=== PATIENT | male | born 1975 | race Caucasian/White ===

== ENCOUNTER 2019-05-06 14:32 | Emergency (ER) | payer BC ==
--- NOTE | 2019-05-06 15:52 | ED Physician Chart ---
ED Chief Complaint/HPI - Patient Information Date Seen:: 05/06/19 Time Seen:: 15:00 Chief Complaint:: Left foot pain for about 6 days. History of Present Illness:: Pt came in by private auto because of left foot pain for about 6 days after he accidentally twisted it when he slipped on wet floor. No other bodily injury or pain. No LOC. Last analgesic use with ibuprofen at about 1230 today. Allergies:: Allergies Allergy/AdvReac Type Severity Reaction Status Date / Time No Known Allergies Allergy Verified 05/06/19 14:54 Vitals:: Vital Signs - 8 hr 05/06/19 14:54 Temp 97.4 F HR 86 RR 17 BP 122/72 O2 Sat % 95 Historian:: Patient Family MD/PCP:: unknown LMP:: N/A Review:: Nurse's Note Reviewed ED Review of Systems - Review of Systems General/Constitutional: No fever, No weakness, No loss of appetite Skin: No skin lesions, No rash, No bruising Head: No headache, No light-headedness Eyes: No loss of vision, No pain, No diplopia ENT: No earache, No nasal drainage, No sore throat Neck: No stiffness, No mass noted Cardio Vascular: No chest pain Pulmonary: No SOB, No cough, No wheezing GI: No nausea, No vomiting, No pain G/U: No dysuria, No frequency, No hematuria Musculoskeletal: Bone or joint pain (L foot pain.) Psychiatric: No prior psych history Hematopoietic: No bruising, No lymphadenopathy Allergic/Immuno: No urticaria, No angioedema Neurological: No syncope, No focal symptoms, No weakness, No paresthesia, No headache, No dizziness, No confusion ED Past Medical History - Past Medical History Past Medical History: No significant medical hx Family History: HTN (in both parents.) Social History: Smoker, Alcohol, Illicit Drug Use (with marijuana.), Single, Other (Pt has been informed about health risks associated with tobacco, ethanol , and illicit drug use and has been advised to stop. Pt has been encouraged to enroll in a smoking cessation program and rehab. program. Pt acknowledges understanding.) Employment:: unemployed. Surgical History: other (Abdominal surgery related renal condition at age 14.) Psychiatricy History: None Medication: Reviewed Family Medical History - Family Member Mother History Unknown: Yes ED Physical Exam - Physical Examination General/Constitutional: Awake, Well-developed, well-nourished (male), Alert, No distress Other Gen/Cons comments:: Breathes comfortably, speaks clearly, and interacts appropriately. Eyes: Lids, conjuctiva normal, PERRL, EOMI Skin: Well hydrated, No lymphadenopathy ENMT: External ears, nose nl, Nasal exam nl, Oropharynx nl Neck: Nontender, Full ROM w/o pain, No nuchal rigidity, No mass Respiratory: Nl effort/Exclusion, Clear to Auscultation, No Wheeze/Rhonchi/Rales Cardio Vascular: RRR, No murmur, gallop, rubs GI: No tenderness/rebounding/guarding, No organomegaly, Normal BS's, Nondistended, No mass/bruits Other GI comments:: Abdomen is obese but soft. Other Extremities comments:: LLE: remarkable for tenderness at lateral left ankle and distal dorsum of left foot. There is mild swelling. No erythema, gross deformity, ecchymosis or open wound. ROM is not well assessed due to pain. No detectable motor/sensory/ vascular deficit. Good distal pulse and capillary refill. Neuro/Psych: Alert/oriented (oriented x 3. ), No focal deficits Misc: Normal back, No paraspinal tenderness ED Labs/Radiology/EKG Results - Radiology Results Results: L foot X-ray: Based on my interpretation, distal left fibular fracture noticed. Otherwise, unremarkable. Official report is pending. L ankle X-ray: Based on my interpretation, distal spiral comminuted fracture noticed in distal left fibula. Offical report is pending. ED Septic Shock - . Is Septic Shock (SBP<90, OR Lactate>4 mmol\L) present?: No - <6hrs of presentation: Vital Signs: Vital Signs - 8 hr 05/06/19 14:54 Temp 97.4 F HR 86 RR 17 BP 122/72 O2 Sat % 95 ED Reassessment (Disposition) - Reassessment Reassessment:: 1805 Pt remains comfortable. Radiological findings have been reviewed with pt. Pt requests to go home now. Aftercare instructions have been given. Reassessment Condition:: Improved - Diagnosis Diagnosis:: S/P mechanical fall with left distal fibular fracture and left foot contusion. Stable. - Aftercare/Follow up Instructions Aftercare/Follow-Up Instructions:: Refer to Discharge Instructions Notes:: Wear left leg splint to ankle and foot as directed. Avoid weight bearing on left leg. Use crutches. May take Motrin 200 mg tab 4 tabs po q8h prn pain. Fracture and bruise care instructions given. F/U with Dr. [facility] ([facility]) or orthopedic surgeon of pt's choice in one day for recheck. Return to ER immediately if condition worsens or if any further questions/problems. Medication Prescribed:: None - Patient Disposition Discharge/Transfer:: Home Time:: 18:10 Condition at Disposition:: Stable, Improved
--- NOTE | 2019-05-07 09:59 | Diagnostic Imaging Report ---
Left ankle 3 views Indication: Trauma Comparison: Left foot x-rays the same day Findings: There is a mildly displaced oblique fracture of the distal fibular shaft extending to the metaphyseal region. Generalized subcutaneous edema is noted. Mild degenerative changes are noted. Small distal Achilles and plantar calcaneal spurs are noted. Impression: Mildly displaced oblique fracture distal fibular shaft. Consider additional views of the proximal tibia and fibula for further assessment. Generalized subcutaneous edema.
--- NOTE | 2019-05-07 10:25 | Diagnostic Imaging Report ---
Left foot 3 views Indication: Trauma Comparison: Left ankle x-rays the same day Findings: Diffuse soft tissue swelling is noted greatest along the dorsal forefoot. No gross fracture identified in this region. Distal fibular fracture is again noted. No dislocation. Small distal Achilles and small plantar calcaneal spurs are noted. Impression: Distal fibular fracture as seen on recent x-ray of the left ankle Diffuse soft tissue swelling along the dorsal forefoot. No gross fracture is identified in this region, however, if there is continued concern for occult fracture, MRI may be obtained for further assessment. In the setting of trauma, if clinical symptoms persist and there is continued concern for an occult fracture, follow up exams in 5-7 days is suggested.
== END 2019-05-06 18:15 | disposition home or self-care (01) ==
LOC: ER 14:32
DX: S82.832A Other fracture of upper and lower end of left fibula, initial encounter for closed fracture (principal); F17.200 Nicotine dependence, unspecified, uncomplicated; X50.1XXA Overexertion from prolonged static or awkward postures, initial encounter; Y93.89 Activity, other specified; Y92.89 Other specified places as the place of occurrence of the external cause; Y99.8 Other external cause status
CPT/HCPCS: 73610-TC; 73630-TC-LT; Z7502